=== PATIENT | female | born 1965 | race Caucasian/White ===

== ENCOUNTER 2019-07-02 06:50 | Emergency (ER) | payer SELFPAY ==
[~2019-07-02] VITALS: Ht 175.3 cm; Wt 71.0 kg
[2019-07-02 06:58] VITALS: BP 122/69
--- NOTE | 2019-07-02 08:29 | NUR ---
REQUESTING PAIN MEDS ERP AWARE NO NEW ORDERS
[2019-07-02 08:32] LABS: BASOPHILS # (AUTO) 0.07 x10^3/uL (0-0.1); BASOPHILS % (AUTO) 1 % (0-1); EOSINOPHILS # (AUTO) 0.21 x10^3/uL (0-0.4); EOSINOPHILS % (AUTO) 3 % (1-7); LYMPHOCYTES # (AUTO) 1.59 x10^3/uL (1-3.4); LYMPHOCYTES % (AUTO) 21 % (22-44); MD NO; MEAN CORPUSCULAR HEMOGLOBIN 31.8 pg (27.0-34.8); MEAN CORPUSCULAR HGB CONC 33.4 g/dL (32.4-35.8); MEAN PLATELET VOLUME 7.2 fL (7.4-10.4); MONOCYTES # (AUTO) 0.52 x10^3/uL (0.2-0.8); MONOCYTES % (AUTO) 7 % (2-9); NEUTROPHILS # (AUTO) 5.16 x10^3/uL (1.8-6.8); NEUTROPHILS % (AUTO) 68 % (42-75); PLATELET COUNT 389 x10^3/uL (130-400); RED BLOOD COUNT 3.98 x10^6/uL (3.82-5.3); RED CELL DISTRIBUTION WIDTH 12.9 % (9.6-15.2)
[2019-07-02 08:41] LABS: ALANINE AMINOTRANSFERASE 25 U/L (12-78); ALBUMIN 3.3 g/dL (3.4-5.0); ANION GAP 5 mmol/L (5-15); CALCIUM 8.5 mg/dL (8.5-10.1); CHLORIDE 110 mmol/L (98-107); CREATININE 0.84 mg/dL (0.55-1.02)
[2019-07-02 08:43] LABS: ALKALINE PHOSPHATASE 101 U/L (45-117); BILIRUBIN,TOTAL 0.5 mg/dL (0.2-1.0); TOTAL PROTEIN 6.7 g/dL (6.4-8.2)
--- NOTE | 2019-07-02 09:23 | NUR ---
PT UNHAPPY WITH CARE STS SHE WILL REFUSE TO LEAVE CONSULTED W ERP HE STS PT IS DISCHARGED SHE WAS ABLE TO WALK COMING TO THE ED AND NO FURTHER ED TX IS REQUIRED PT REFERED TO SECURITY FOR DC
== END 2019-07-02 09:36 | disposition home or self-care (01) ==
LOC: ED 09:30
DX: G89.29 Other chronic pain (principal); M79.662 Pain in left lower leg; M79.661 Pain in right lower leg; M79.672 Pain in left foot; M79.671 Pain in right foot
CPT/HCPCS: 36415; 80053; 83605; 85025; 99283

== ENCOUNTER 2019-07-31 01:34 | Emergency (ER) | payer SELFPAY ==
[~2019-07-31] VITALS: Ht 180.3 cm; Wt 70.0 kg
[2019-07-31 01:37] VITALS: BP 126/65
[2019-07-31] MEDS ORDERED: ACETAMINOPHEN 500 MG TABLET ONE (01:51)
[2019-07-31] MEDS: ACETAMINOPHEN 500 MG TABLET PO ONE (01:54)
[2019-07-31] MEDS ORDERED: ONDANSETRON ODT 8 MG PO ONE (02:00)
== END 2019-07-31 02:39 ==
LOC: ED 02:33
DX: S09.8XXA Other specified injuries of head, initial encounter (principal); S16.1XXA Strain of muscle, fascia and tendon at neck level, initial encounter; S10.93XA Contusion of unspecified part of neck, initial encounter; W19.XXXA Unspecified fall, initial encounter; Y93.89 Activity, other specified; Y92.488 Other paved roadways as the place of occurrence of the external cause; Y99.8 Other external cause status
CPT/HCPCS: 70450; 72125; 99284